=== PATIENT | female | born 1950 | race Caucasian/White ===

== ENCOUNTER 2017-04-24 10:37 | Outpatient (CLI) | payer MEDICARE ==
[2017-04-24 11:40] LABS: Mean Platelet Volume 7.3 fL (7.4-10.4); White Blood Cell (WBC) Count 11.2 thou/uL (4.8-10.8)
[2017-04-24 12:07] LABS: ALT (SGPT) 14 U/L (8-55); AST (SGOT) 21 U/L (5-34); Alkaline Phosphatase 110 U/L (40-150); Anion Gap 11 mmol/L (10-20); BUN (Urea Nitrogen) 10 mg/dL (9.8-20.1); Bilirubin, Direct 0.2 mg/dL (0.1-0.3); Bilirubin, Total 0.4 mg/dL (0.2-1.2); Calc. Creatinine Clearance 0 mL/min (70-130); Calcium 9.9 mg/dL (7.8-10.44); Carbon Dioxide 31 mmol/L (23-31); Chloride 102 mmol/L (98-107); Estimated GFR-MDRD 80; Protein, Total 7.2 g/dL (6.0-8.3)
== END 2017-04-24 10:38 | disposition home or self-care (01) ==
LOC: LABBT 10:37
PROVIDERS: ATTEND Surgery
DX: Z01.812 Encounter for preprocedural laboratory examination (principal); K80.20 Calculus of gallbladder without cholecystitis without obstruction
CPT/HCPCS: 80048; 80076; 85027

== ENCOUNTER 2017-04-27 09:40 | Day surgery (SDC) | payer MEDICARE ==
[2017-04-24 10:50] VITALS: BMI 29.6
[~2017-04-27 09:40] MED LIST: Glycopyrrolate 0.2 MG/ML 5 ML SYRINGE ONE; Lidocaine 1% PF 5 ML VIAL ONE; Ondansetron HCl/PF 4 MG/2 ML Vial ONE; PHENYLEPHRINE-NS 100 MCG/ML 10 ML SYRINGE ONE; Propofol 200 MG/20 ML VIAL ONE
[2017-04-27] MEDS ORDERED: CEFAZOLIN/Water 2 GM/20 ML SYRINGE ONE (10:16)
[2017-04-27] MEDS ORDERED: Indocyanine Green 25 MG/10 ML VIAL ONE (10:16)
[2017-04-27] MEDS ORDERED: Bupivacaine 0.25% HCL 30 ML VIAL ONE (11:36)
[2017-04-27] MEDS ORDERED: Lidocaine 1% w/Epinephrine 1:200K 30 ML VIAL ONE (11:36)
[2017-04-27] MEDS ORDERED: Fentanyl 100 MCG/2 ML VIAL ONE ×4 (12:04→15:01)
[2017-04-27] MEDS ORDERED: Promethazine HCl 25 MG/ML VIAL ONE (13:59)
--- NOTE | 2017-04-27 18:04 | OP ---
DATE OF PROCEDURE: 04/27/2017 PREOPERATIVE DIAGNOSIS: Symptomatic gallstones. POSTOPERATIVE DIAGNOSIS: Symptomatic gallstones. PROCEDURE: Da Andre laparoscopic cholecystectomy robotic. SURGEON: Jung Tillman M.D. ANESTHESIA: General. ESTIMATED BLOOD LOSS: Minimal. COMPLICATIONS: None. SPECIMEN: Gallbladder. FINDINGS: Chronic cholecystitis. TECHNIQUE: The patient was taken to the operating room and placed supine on the table. After genera l anesthetic was obtained, the abdomen was shaved, prepped, and draped in a sterile fashion. Curved incision made below the umbilicus. Cautery was used to dissect down to and score the fascia. Abdomi nal cavity was entered bluntly using a Alesha clamp. Holding stitch of PDS was placed on each side of the fascia. A 12-mm port was placed under direct vision and high-flow pneumoperitoneum was obtained . Left and right abdominal 8-mm robot trocars were placed and right lateral 5-mm assist trocar was p laced, all under direct visualization. The patient was placed in reverse Trendelenburg position. Laly hebert goes to the console. All ports were docked to the robot. The peritoneum of the gallbladder wa s opened anteriorly and posteriorly. The critical view triangle was seen showing only the cystic michelle t and cystic artery branching from medial to lateral. There were no other branching structures. ICG green had been given preoperative and immunofluorescence was used to confirm the anatomy. Two clips were placed proximally and one distally and the cystic duct was cut using the cautery. Cystic arter y was taken in the same way. Cautery was used to dissect the gallbladder out of the gallbladder santosh a. Surgeon then scrubbed back into the bedside. The gallbladder was placed in an Endo catch bag and brought out through the 12-mm port site. All port sites were infiltrated using local anesthetic and pulled and removed with no ongoing bleeding. Pneumoperitoneum was let down. PDS was used to close the fascial defect below the umbilicus. All incisions were irrigated and closed using 4-0 Monocryl a nd Dermabond. The patient was en route to recovery in stable condition. All instrument counts, need le counts, and lap counts are correct.
== END 2017-04-27 16:36 | disposition home or self-care (01) ==
LOC: SDC 09:40
PROVIDERS: ATTEND Surgery
PROC: 0FT44ZZ Resection of Gallbladder, Percutaneous Endoscopic Approach (ICD-10-PCS; principal; 2017-04-27)
DX: K80.10 Calculus of gallbladder with chronic cholecystitis without obstruction (principal); Z88.0 Allergy status to penicillin; Z88.2 Allergy status to sulfonamides; Z88.8 Allergy status to other drugs, medicaments and biological substances; Z88.1 Allergy status to other antibiotic agents; Z91.018 Allergy to other foods; Z90.710 Acquired absence of both cervix and uterus; Z98.890 Other specified postprocedural states
CPT/HCPCS: 88304; 96374; J2001; J2405; J2550; J2704; J3010; S0020

== ENCOUNTER 2018-03-28 04:58 | Emergency (ER) | payer MEDICARE ==
[2018-03-28 05:53] LABS: #Basophils 0.1 thou/uL (0.0-0.2); #Eosinphils 0.6 thou/uL (0.0-0.7); #Lymphocytes 2.7 thou/uL (1.20-3.40); #Neutrophils 4.1 thou/uL (1.40-6.50); %Basophils 1.5 % (0.0-1.0); %Eosinophils 6.6 % (0.0-10.0); %Lymphocytes 32.1 % (21.0-51.0); %Monocytes 11.3 % (0.0-10.0); %Neutrophils 48.5 % (42.0-75.0); Hemoglobin 13.5 g/dL (12.0-16.0); Mean Corpuscular Hemoglobin 28.5 pg (27.0-31.0); Mean Corpuscular Volume 86.5 fL (78.0-98.0); Mean Platelet Volume 7.2 fL (7.4-10.4); Platelet Count 324 thou/uL (130-400); RBC Distribution Width 12.4 % (11.5-14.5); Red Blood Cell (RBC) Count 4.73 mill/uL (4.20-5.40); White Blood Cell (WBC) Count 8.4 thou/uL (4.8-10.8)
[2018-03-28 06:20] LABS: ALT (SGPT) 13 U/L (8-55); AST (SGOT) 20 U/L (5-34); Albumin 4.5 g/dL (3.4-4.8); Alkaline Phosphatase 104 U/L (40-150); Anion Gap 15 mmol/L (10-20); BUN (Urea Nitrogen) 10 mg/dL (9.8-20.1); Bilirubin, Total 0.4 mg/dL (0.2-1.2); Calc. Creatinine Clearance 0 mL/min (70-130); Calcium 9.9 mg/dL (7.8-10.44); Carbon Dioxide 25 mmol/L (23-31); Chloride 104 mmol/L (98-107); Estimated GFR-MDRD 74; Globulin 3.1 g/dL (2.4-3.5); Glucose 89 mg/dL (80-115); Lipase 32 U/L (8-78); Magnesium 2.5 mg/dL (1.6-2.6); Potassium 3.5 mmol/L (3.5-5.1); Protein, Total 7.6 g/dL (6.0-8.3); Sodium 140 mmol/L (136-145)
[2018-03-28 06:24] LABS: CKMB 0.9 ng/mL (0-6.6); Troponin I Less than 0.010 ng/mL (< 0.028)
--- NOTE | 2018-03-28 08:44 | RAD ---
PORTABLE CHEST 1 VIEW: Date: 03/28/18 Time: 0423 hours HISTORY: Chest pain and nonproductive cough. FINDINGS: Comparison made with exam of 09/21/14. The heart size is normal. The lungs are expanded without focal areas of consolidation, pneumothorax, or pleural effusions. IMPRESSION: No acute process. POS: [facility]
== END 2018-03-28 07:09 | disposition home or self-care (01) ==
LOC: ERS 04:58
DX: J45.901 Unspecified asthma with (acute) exacerbation (principal); J06.9 Acute upper respiratory infection, unspecified
CPT/HCPCS: 71045; 80053; 82553; 83690; 83735; 84484; 85025; 87804; 93005; 94640; J7620

== ENCOUNTER 2019-06-08 11:43 | Emergency (ER) | payer MEDICARE ==
--- NOTE | 2019-06-08 12:19 | RAD ---
EXAM: Single view of the chest HISTORY: Chest pain COMPARISON: 03/28/2018 FINDINGS: Single view of the chest shows a normal sized cardiomediastinal silhouette. There is no ashley dence of consolidation, mass, or pleural effusion. The bones are unremarkable. IMPRESSION: No evidence of acute cardiopulmonary disease
[2019-06-08 12:23] LABS: #Basophils 0.1 thou/uL (0.0-0.2); #Eosinphils 0.2 thou/uL (0.0-0.7); #Lymphocytes 3.4 thou/uL (1.20-3.40); #Neutrophils 10.1 thou/uL (1.40-6.50); %Basophils 0.7 % (0.0-1.0); %Eosinophils 1.2 % (0.0-10.0); %Monocytes 6.8 % (0.0-10.0); %Neutrophils 68.3 % (42.0-75.0); Hemoglobin 12.4 g/dL (12.0-16.0); Mean Corpuscular HGB CONC 32.2 g/dL (32.0-36.0); Mean Corpuscular Hemoglobin 28.3 pg (27.0-31.0); Mean Corpuscular Volume 87.9 fL (78.0-98.0); Mean Platelet Volume 7.1 fL (7.4-10.4); Platelet Count 448 thou/uL (130-400); RBC Distribution Width 11.7 % (11.5-14.5); Red Blood Cell (RBC) Count 4.39 mill/uL (4.20-5.40); White Blood Cell (WBC) Count 14.8 thou/uL (4.8-10.8)
[2019-06-08 12:50] LABS: ALT (SGPT) 19 U/L (8-55); AST (SGOT) 27 U/L (5-34); Albumin 4.1 g/dL (3.4-4.8); Alkaline Phosphatase 175 U/L (40-110); Anion Gap 14 mmol/L (10-20); BUN (Urea Nitrogen) 10 mg/dL (9.8-20.1); Bilirubin, Total 0.4 mg/dL (0.2-1.2); CK (CPK) 53 U/L (29-168); Calc. Creatinine Clearance 0 mL/min (70-130); Calcium 9.6 mg/dL (7.8-10.44); Carbon Dioxide 25 mmol/L (23-31); Chloride 104 mmol/L (98-107); Estimated GFR-MDRD 81; Globulin 3.7 g/dL (2.4-3.5); Glucose 97 mg/dL (80-115); Lipase 12 U/L (8-78); Potassium 3.7 mmol/L (3.5-5.1); Protein, Total 7.8 g/dL (6.0-8.3); Sodium 139 mmol/L (136-145)
[2019-06-08] MEDS ORDERED: Iopamidol-370 76% 500 ML 1 ML ONE (13:40)
--- NOTE | 2019-06-08 15:31 | CT ---
CT OF THE CHEST, ABDOMEN AND PELVIS WITH IV CONTRAST INDICATION: Lymphadenopathy COMPARISON: CTA of the thorax dated April 15, 2016. FINDINGS: CHEST: Lungs: The lungs are clear. Pleural space: No effusion. Mediastinum: No pathologically enlarged lymph nodes are evident. Axilla: No pathologically enlarged lymph nodes. ABDOMEN: Lung bases: Clear Liver: No focal lesion. Gallbladder: Normal appearing. Pancreas: Normal. Adrenal glands: Normal. Spleen: Normal. Kidneys and ureters: Normal. No hydronephrosis. Vasculature: There are moderate vascular calcifications seen involving the visualized vasculature. Lymph nodes:No lymphadenopathy. Free fluid in abdomen:No free fluid is evident. PELVIS: Small and large bowel: There are a few scattered diverticula involving the colon. There is a moderate amount retained stool within the colon. Appendix:Not definitely seen Bladder: Normal. Rectal and perirectal soft tissues:Normal. Reproductive structures: Surgically absent Free fluid in pelvis: No free fluid is evident. Lymphadenopathy pelvis: No lymphadenopathy is evident. Osseous structures: No acute osseous abnormality. No destructive osteolytic or osteoblastic lesion i s identified. There is scattered degenerative and osteoarthritic changes. Soft tissues:Normal. IMPRESSION: 1. No lymphadenopathy demonstrated.
[2019-06-08 15:34] LABS: Troponin I Less than 0.010 ng/mL (< 0.028)
[2019-06-08] MEDS ORDERED: Ketorolac Tromethamine 30 MG/ML VIAL ONE (15:40)
== END 2019-06-08 16:40 | disposition home or self-care (01) ==
LOC: ERS 11:43
DX: R07.2 Precordial pain (principal); J45.909 Unspecified asthma, uncomplicated; Z79.51 Long term (current) use of inhaled steroids; Z79.899 Other long term (current) drug therapy
CPT/HCPCS: 71045; 71260; 74177; 80053; 82550; 83690; 84484; 85025; 93005; 96374; J1885; Q9967

== ENCOUNTER 2022-08-19 09:58 | Outpatient (CLI) | payer MEDICARE, OTHER | END 2022-08-19 09:59 | disposition home or self-care (01) | LOC: SCSRAD 09:58 | PROVIDERS: ATTEND Family Medicine | DX: M25.531 Pain in right wrist (principal) ==

== ENCOUNTER 2022-09-19 09:13 | Outpatient (CLI) | payer MEDICARE | END 2022-09-19 09:14 | disposition home or self-care (01) | LOC: SCSCT 09:13 | PROVIDERS: ATTEND Family Medicine | DX: M25.531 Pain in right wrist (principal) ==

== ENCOUNTER 2023-05-28 12:05 | Outpatient (CLI) | payer MEDICARE | END 2023-05-28 12:06 | disposition home or self-care (01) | LOC: SCSRAD 12:05 | PROVIDERS: ATTEND Family Medicine | DX: M79.672 Pain in left foot (principal) ==